=== PATIENT | female | born 1955 | race Caucasian/White ===

== ENCOUNTER 2018-04-01 18:45 | Observation (INO) | payer OTHER ==
[2018-04-01] MEDS ORDERED: NITROGLYCERIN 0.4 MG BTL SL ONE (19:20)
[2018-04-01] MEDS ORDERED: NS 500 ML IV ONE (19:23)
[2018-04-01] MEDS: NITROGLYCERIN 0.4 MG BTL SL PRN ×2 (19:25→19:46)
--- NOTE | 2018-04-01 19:32 | EDPHY ---
H & P Time Seen by Provider: 04/01/18 18:51 HPI/ROS: CHIEF COMPLAINT: Chest pain HISTORY OF PRESENT ILLNESS: Patient states she developed chest pain today around 4-430 this afternoon. She states she had been out and had dinner with a friend. When she arrived back at the house she felt a sharp, stabbing pain in the mid left chest that was about 7 to 8/10. She states that lasted only a second or 2. She sat down and states that the chest pain resumed although was not as sharp at that time. She felt that something was not right and took 4 baby aspirin. She continued to sit on her bed and described a 4/10 "heaviness" in her chest. The pain never went away. She describes the location of the pain as substernal to left-sided. There is radiation to the back and left jaw. She states she loosened her bra in hopes that that would help the discomfort. She did try omeprazole with no change. She states that she had some nausea but denies shortness of breath or diaphoresis. Eventually she decided to come to the emergency department for evaluation. She states that the pain currently as about 3 to 4/10. She denies any recent illnesses, no orthopnea, paroxysmal nocturnal dyspnea, dyspnea on exertion or decreased exercise tolerance. She does state however that 1-2 weeks ago she was a woken from sleep with a rapid heart rate. She states that it lasted several minutes but did not cause significant pain. She does have a family history of coronary artery disease her father had 2 triple bypass surgeries as well as stents and developed his heart problems in his 50s. She is a smoker. REVIEW OF SYSTEMS: Constitutional: No fever, no chills. Eyes: No discharge. ENT: No sore throat. Cardiovascular: Per HPI Respiratory: No cough, no shortness of breath. Gastrointestinal: No abdominal pain, no vomiting. Genitourinary: No dysuria. Musculoskeletal: Chest pain radiating to the back. Otherwise no musculoskeletal back pain. Skin: No rashes. Neurological: No headache. General Appearance: Alert, no distress. Eyes: Pupils equal and round no pallor or injection. ENT, Mouth: Mucous membranes moist. Respiratory: There are no retractions, lungs are clear to auscultation. Cardiovascular: Regular rate and rhythm. No murmurs rubs or gallops. Normal femoral pulses. Gastrointestinal: Abdomen is soft and nontender, no masses, bowel sounds normal. Neurological: Awake, alert, cranial nerves intact, no focal neurologic deficits. Skin: Warm and dry, no rashes. Musculoskeletal: Neck is supple nontender. Extremities are symmetrical, full range of motion, no edema. Psychiatric: Patient is oriented X 3, there is no agitation. Medical/surgical history: High cholesterol, "pre" type 2 diabetes, macular degeneration, hypothyroid. Surgeries include lumpectomies, foot surgery, C- section. Social history: Uses tobacco. Ashley Lira PCP. Smoking Status: Current every day smoker Constitutional: Initial Vital Signs Temperature (C) 36.5 C 04/01/18 18:56 Heart Rate 66 04/01/18 18:56 Respiratory Rate 12 04/01/18 18:56 Blood Pressure 172/86 H 04/01/18 18:56 O2 Sat (%) 96 04/01/18 18:56 O2 Delivery Mode Room Air Allergies/Adverse Reactions: erythromycin base [Erythromycin Base] Allergy (Verified 04/01/18 18:54) Iodinated Contrast- Oral and IV Dye Allergy (Verified 04/01/18 18:54) povidone-iodine [From Betadine] Allergy (Verified 04/01/18 18:54) soap [From Betadine] Allergy (Verified 04/01/18 18:54) Sulfa (Sulfonamide Antibiotics) Allergy (Verified 04/01/18 18:54) Home Medications: Medication Instructions Recorded Albuterol Hfa Anes Only [Proair 0 puffs IH 05/18/11 Hfa Icu] Aspirin [Aspirin 81mg] 81 mg PO DAILY 05/18/11 Fluticasone Nasal [Flonase Nasal sprays NASAL DAILY 05/18/11 [place]] Levothyroxine [Synthroid 50 mcg mcg PO DAILY06 05/18/11 (RX)] [place]-3 Fatty Acids [Fish Oil 1000 1,000 mg PO DAILY 05/18/11 mg (OTC)] Omeprazole [Prilosec 20 mg] mg PO DAILY 05/18/11 metFORMIN HCL [Glucophage 500 mg mg PO 05/18/11 (*)] oxyCODONE/APAP 5/325 [Percocet 5 mg PO Q4-6PRN PRN #15 tab NS 08/13/12 5/325] LORazepam [Ativan (*)] 04/01/18 SIMVASTATIN 04/01/18 Medical Decision Making - Diagnostics EKG Interpretation: EKG shows normal sinus rhythm with normal rate, borderline left axis deviation, normal intervals. Some subtle report will abnormalities V1 [address] 3[address] No acute [address] T-wave elevation to suggest infarct. Impression abnormal, nonspecific EKG. Imaging Results: Imaging Impressions Chest X-Ray 04/01/18 19:23 Impression: Suspect airways disease with no superimposed acute abnormality identified. ED Course/Re-evaluation: 7:40 p.m. Re-evaluation after initial nitro. Patient states some improvement, 1 to 2/10 pain currently. Discussed heart score, intermediate risk, recommendations for admission. 7:46 p.m. patient states "I need another nitro". 7:[address] Thomas, excepted for transfer to [facility]. 8:15 p.m. Re-evaluation finds patient meditating, no complaints. 8:43 p.m. ambulance arrival in the ED, patient stable on transfer. Differential Diagnosis: Differential diagnosis includes but is not limited to acute coronary syndrome, ST-elevation [place], pneumonia, vascular abnormality, thromboembolic disease. After evaluation concern for acute coronary syndrome. Patient with a heart score of 6 placing her in the intermediate range with a 12-16% risk of major adverse cardiac event in next 30 days. Patient with essentially normal x-ray and physical findings so low concern for thoracic aortic dissection or aneurysm. No risk factors, lower extremity edema, or shortness of breath to suggest pulmonary embolism and D-dimer was deferred. Plan is for transfer to [facility] for further evaluation. Discussed with hospitalistMAYDA complete, ambulance transfer arranged. - Data Points Laboratory Results: Laboratory Results 04/01/18 19:00 04/01/18 04/01/18 04/01/18 19:07 19:05 19:00 WBC 8.51 10^3/uL 10^3/uL (3.80-9.50) RBC 4.65 10^6/uL 10^6/uL (4.18-5.33) Hgb 14.0 g/dL g/dL (12.6-16.3) Hct 41.4 % % (38.0-47.0) MCV 89.0 fL fL (81.5-99.8) MCH 30.1 pg pg (27.9-34.1) MCHC 33.8 g/dL g/dL (32.4-36.7) RDW 13.9 % % (11.5-15.2) Plt Count 301 10^3/uL 10^3/uL (150-400) MPV 11.1 fL fL (8.7-11.7) Neut % (Auto) 58.9 % % (39.3-74.2) Lymph % (Auto) 26.4 % % (15.0-45.0) [place] % (Auto) 10.2 % % (4.5-13.0) Eos % (Auto) 3.9 % % (0.6-7.6) Baso % (Auto) 0.4 % % (0.3-1.7) Nucleat RBC Rel Count 0.0 % % (0.0-0.2) Absolute Neuts (auto) 5.01 10^3/uL 10^3/uL (1.70-6.50) Absolute Lymphs (auto) 2.25 10^3/uL 10^3/uL (1.00-3.00) Absolute Monos (auto) 0.87 10^3/uL H 10^3/uL (0.30-0.80) Absolute Eos (auto) 0.33 10^3/uL 10^3/uL (0.03-0.40) Absolute Basos (auto) 0.03 10^3/uL 10^3/uL (0.02-0.10) Absolute Nucleated RBC 0.00 10^3/uL 10^3/uL (0-0.01) Immature Gran % 0.2 % % (0.0-1.1) Immature Gran # 0.02 10^3/uL 10^3/uL (0.00-0.10) POC Sodium 142 mEq/L mEq/L (135-145) POC Potassium 4.3 mEq/L mEq/L (3.3-5.0) POC Chloride 105.0 mEq/L mEq/L (97-110) POC Total CO2 24 mEq/L mEq/L (22-31) POC BUN 13 mg/dL mg/dL (7-23) POC Creatinine 1.0 mg/dL mg/dL (0.6-1.0) POC Glucose 135 mg/dL H mg/dL (70-100) POC Calcium 9.5 mg/dL mg/dL (8.5-10.4) POC Total Bilirubin 0.9 mg/dL mg/dL (0.1-1.4) POC AST 29 IU/L IU/L (14-46) POC ALT 24 IU/L IU/L (9-52) POC Alk Phosphatase 84 IU/L IU/L (38-126) POC Troponin I 0.01 ng/mL ng/mL (0.00-0.08) POC Total Protein 7.3 g/dL g/dL (6.3-8.2) POC Albumin 3.8 g/dL g/dL (3.5-5.0) Medications Given: Nitroglycerin (Nitrostat) 0.4 mg SL Q5M PRN PRN Reason: Chest Pain Last Admin: 04/01/18 19:46 Dose: 0.4 mg Discontinued Medications Sodium Chloride (Ns) 500 mls @ 1,000 mls/hr IV EDNOW ONE PRN Reason: Protocol Stop: 04/01/18 19:52 Last Admin: 04/01/18 19:30 Dose: 500 mls Point of Care Test Results: CBC CBC Collection Date 04/01/18 CBC Collection Time 19:00 Chemistry 04/01/18 04/01/18 19:07 19:05 POC Sodium 142 mEq/L mEq/L (135-145) POC Potassium 4.3 mEq/L mEq/L (3.3-5.0) POC Chloride 105.0 mEq/L mEq/L (97-110) POC Total CO2 24 mEq/L mEq/L (22-31) POC BUN 13 mg/dL mg/dL (7-23) POC Creatinine 1.0 mg/dL mg/dL (0.6-1.0) POC Glucose 135 mg/dL H mg/dL (70-100) POC Calcium 9.5 mg/dL mg/dL (8.5-10.4) POC Total Bilirubin 0.9 mg/dL mg/dL (0.1-1.4) POC AST 29 IU/L IU/L (14-46) POC ALT 24 IU/L IU/L (9-52) POC Alk Phosphatase 84 IU/L IU/L (38-126) POC Troponin I 0.01 ng/mL ng/mL (0.00-0.08) POC Total Protein 7.3 g/dL g/dL (6.3-8.2) POC Albumin 3.8 g/dL g/dL (3.5-5.0) Departure - Departure
[2018-04-01 20:29] LABS: PLATELET COUNT 301 10^3/uL (150-400)
--- NOTE | 2018-04-01 20:51 | CPEKG ---
Test Reason : OPEN Blood Pressure : / mmHG Vent. Rate : 065 BPM Atrial Rate : 065 BPM P-R Int : 169 ms QRS Dur : 088 ms QT Int : 405 ms P-R-T Axes : 024 -24 040 degrees QTc Int : 422 ms Sinus rhythm Borderline left axis deviation Probable anteroseptal infarct, old Confirmed by Dedeee Ernst ([id number]) on 04/01/2018 8:51:32 PM Referred By: Deedee Ernst Confirmed By:Deedee Ernst
[2018-04-01] MEDS ORDERED: ACETAMINOPHEN 325 MG TAB PO PRN (21:33)
[2018-04-01] MEDS ORDERED: ONDANSETRON DISINTEGRATING 4 MG TAB PO PRN (21:33)
[2018-04-01] MEDS ORDERED: ONDANSETRON 4 MG/2 ML VIAL IVP PRN (21:33)
[2018-04-01] MEDS ORDERED: NITROGLYCERIN 0.4 MG BTL SL PRN (21:33)
--- NOTE | 2018-04-02 | PDGENHP ---
History and Physical - Chief Complaint Chest pain - History of Present Illness Source-patient provides history appears reliable. EMR was reviewed and case discussed with ED provider. HPI-this is a very pleasant 62-year-old female with past medical history significant for HLD, pre DM, hypothyroidism, GERD, anxiety with panic disorder presents emergency department at [facility] this evening with complaints of chest pain. Patient reports that she had been feeling well over the course of the weekend. She does admit that she does have increased stressors at work 0 ever she took the whole week and often was enjoying some time off with friends and family. This afternoon approximately 4-430 patient reports that she was eating dinner with a friend when she developed sharp stabbing type pain in the left chest that was quite unusual for her. Pain was 7 8/10. The pain resolved very quickly however and so patient returned home and was feeling well however shortly thereafter patient again developed chest pain this time with a component of heaviness and squeezing for a 10 pain. Patient thought that perhaps she was having some reflux issues so she took a dose of omeprazole without any improvement in her pain. She did note a little bit of nausea but nothing that was long lasting. She denies any associated shortness of breath or diaphoresis. Patient took of 481 mg of aspirin at home when she began to feel like she was develops a ping pain radiating to her shoulder blades as well as pain into her left neck. When the pain did not change or improve she opted to be evaluated. Patient does report a history of a stress test 15 years ago that was within normal limits. She states that with her annual checkup she states that her lipid panel and sugars have been well controlled. She denies any recent history of lower extremity edema, orthopnea or PND. She does note that she has been experiencing some intermittent palpitations and tachycardia over the past 2 weeks. She does endorse some presyncopal type episodes for which she has had to lay on the floor until it resolved. She has not seen her PCP regarding any of these events. Patient also notes that her father had a significant cardiac history with need for CABG x2 as well as subsequent stenting starting age 50s. Shortly upon arrival patient was reporting some 3/10 chest discomfort. She received a dose of nitroglycerin her pain resolved. History Information - Allergies/Home Medication List Allergies/Adverse Reactions: erythromycin base [Erythromycin Base] Allergy (Verified 04/01/18 18:54) Iodinated Contrast- Oral and IV Dye Allergy (Verified 04/01/18 18:54) povidone-iodine [From Betadine] Allergy (Verified 04/01/18 18:54) soap [From Betadine] Allergy (Verified 04/01/18 18:54) Sulfa (Sulfonamide Antibiotics) Allergy (Verified 04/01/18 18:54) Home Medications: Aspirin [Aspirin 81mg] 81 mg PO DAILY 05/18/11 [Last Taken 04/01/18 324 MG] Omeprazole [Prilosec 20 mg] 20 mg PO DAILY 05/18/11 [Last Taken 04/01/18] C/E/Zn/Cu/OM3/DHA/EPA/LUT/ZEAX [Preservision Areds 2 Softgel] 2 each PO HS 04/01 [Last Taken 03/31/18] Dicyclomine [Bentyl 20 MG (*)] 20 mg PO QID PRN 04/01/18 [Last Taken Unknown] Herbals/Supplements -Info Only 1 ea PO DAILY 04/01/18 [Last Taken Unknown] LORazepam [Ativan (*)] 0.5 mg PO DAILY PRN 04/01/18 [Last Taken Unknown] Levothyroxine [Synthroid 100 mcg (*)] 100 mcg PO DAILY 04/01/18 [Last Taken ] Metformin HCl [Fortamet] 1,000 mg PO HS 04/01/18 [Last Taken 03/31/18] Omeprazole 20 mg PO DAILY PRN 04/01/18 [Last Taken Unknown] Simvastatin [Zocor] 40 mg PO HS 04/01/18 [Last Taken 03/31/18] Vitamin B Complex [Vitamin B Complex (OTC)] 1 each PO DAILY 04/01/18 [Last Taken 03/31/18] I have personally reviewed and updated: family history, medical history, social history, surgical history - Past Medical History Additional medical history: GERD, HLD, pre DM 2, hypothyroidism, macular degeneration, anxiety with history of panic attacks, IBS - Surgical History Additional surgical history: Lumpectomy x2, foot surgery, - Family History Additional family history: Father-age 50 with history of multiple CABGs and stents starting in his latter 50s. Parkinson's and vascular dementia. Mother- astrocytoma - Social History Smoking Status: Current every day smoker Tobacco Use: Cigarettes (Five cigarettes per day patient has been cutting back.) Alcohol Use: Occasionally (Patient reports drinking 1 glass a wine every 3 weeks or less.) Drug Use: Marijuana (Patient reports using 1 times weekly or less.) Additional social history: Patient lives with a roommate. Cor status-full. Review of Systems Review of Systems: ROS: 10pt was reviewed & negative except for what was stated in HPI & below Constitutional: Reports: no symptoms EENMT: Reports: no symptoms Cardiac: Reports: chest pain, lightheadedness, palpitations, syncope ( Presyncopal episodes x2 over the past 2 weeks.). Denies: edema Respiratory: Reports: no symptoms. Denies: shortness of breath Gastrointestinal: Reports: nausea. Denies: vomitting, diarrhea Genitourinary: Reports: no symptoms Muscolosketal: Reports: no symptoms Skin: Reports: no symptoms Neurological: Reports: anxiety. Denies: depressed, tingling, weakness Hematologic/Lymphatic: Reports: no symptoms Physical Exam Physical Exam: Selected Entries 04/01/18 18:56 Blood Pressure Automatic Method Heart Rate 66 Respiratory 12 Rate O2 Sat (%) 96 Temperature (C) 36.5 C Blood Pressure 172/86 H Mean Arterial 114 H Pressure (MAP) O2 Delivery Room Air Mode Temperature Oral Source Temp Pulse Resp BP Pulse Ox 36.6 C 53 L 14 109/61 95 04/01/18 20:47 04/01/18 20:47 04/01/18 20:47 04/01/18 20:47 04/01/18 20:47 Constitutional: no apparent distress, appears nourished, not in pain Eyes: PERRL (Slightly decreased reactivity to light bilaterally but symmetric.) , anicteric sclera, EOMI, No scleral injection Ears, Nose, Mouth, Throat: moist mucous membranes, No poor dentition Cardiovascular: regular rate and rhythym, no murmur, rub, or gallop, pulses symmetric bilaterally, No edema Peripheral Pulses: 2+: dorsalis-pedis (R), dorsalis-pedis (L) Respiratory: no respiratory distress, no rales or rhonchi, clear to auscultation , No respiratory distress Gastrointestinal: normoactive bowel sounds, soft, non-tender abdomen, no palpable masses, other (Obese abdomen.), No distension Genitourinary: no bladder tenderness, No patel in urethra Skin: warm, normal color, no rashes or abrasions Musculoskeletal: full muscle strength, other (Grossly normal exam.) Neurologic: AAOx3, sensation intact bilaterally, other (Grossly nonfocal exam.) , No facial droop Psychiatric: interacting appropriately, not encephalopathic, thought process linear, anxious, No depressed, No agitated Lab Data & Imaging Review 04/01/18 19:00 WBC 8.51 10^3/uL (3.80-9.50) 04/01/18 19: RBC 4.65 10^6/uL (4.18-5.33) 04/01/18:00 Hgb 14.0 g/dL (12.6-16.3) 04/01/18 19:00 Hct 41.4 % (38.0-47.0) 04/01/18 19:00 MCV 89.0 fL (81.5-99.8) 04/01/18: MCH 30.1 pg (27.9-34.1) 04/01/18 19: MCHC 33.8 g/dL (32.4-36.7) 04/01/18 19: RDW 13.9 % (11.5-15.2) 04/01/18 19: Plt Count 301 10^3/uL (150-400) 04/01/18 19:00 MPV 11.1 fL (8.7-11.7) 04/01/18: Neut % (Auto) 58.9 % (39.3-74.2) 04/01/18 19: Lymph % (Auto) 26.4 % (15.0-45.0) 04/01/18 19:00 [place] % (Auto) 10.2 % (4.5-13.0) 04/01/18 19:00 Eos % (Auto) 3.9 % (0.6-7.6) 04/01/18 19:00 Baso % (Auto) 0.4 % (0.3-1.7) 04/01/18 19:00 Nucleat RBC Rel Count 0.0 % (0.0-0.2) 04/01/18 19:00 Absolute Neuts (auto) 5.01 10^3/uL (1.70-6.50) 04/01/18 19:00 Absolute Lymphs (auto) 2.25 10^3/uL (1.00-3.00) 04/01/18 19:00 Absolute Monos (auto) 0.87 10^3/uL (0.30-0.80) H 04/01/18 19:00 Absolute Eos (auto) 0.33 10^3/uL (0.03-0.40) 04/01/18 19:00 Absolute Basos (auto) 0.03 10^3/uL (0.02-0.10) 04/01/18 19:00 Absolute Nucleated RBC 0.00 10^3/uL (0-0.01) 04/01/18 19:00 Immature Gran % 0.2 % (0.0-1.1) 04/01/18 19:00 Immature Gran # 0.02 10^3/uL (0.00-0.10) 04/01/18 19:00 POC Sodium 142 mEq/L (135-145) 04/01/18 19:07 POC Potassium 4.3 mEq/L (3.3-5.0) 04/01/18 19:07 POC Chloride 105.0 mEq/L (97-110) 04/01/18 19:07 POC Total CO2 24 mEq/L (22-31) 04/01/18 19:07 POC BUN 13 mg/dL (7-23) 04/01/18 19:07 POC Creatinine 1.0 mg/dL (0.6-1.0) 04/01/18 19:07 POC Glucose 135 mg/dL (70-100) H 04/01/18 19:07 POC Calcium 9.5 mg/dL (8.5-10.4) 04/01/18 19:07 POC Total Bilirubin 0.9 mg/dL (0.1-1.4) 04/01/18 19:07 POC AST 29 IU/L (14-46) 04/01/18 19:07 POC ALT 24 IU/L (9-52) 04/01/18 19:07 POC Alk Phosphatase 84 IU/L (38-126) 04/01/18 19:07 POC Troponin I 0.01 ng/mL (0.00-0.08) 04/01/18 19:05 POC Total Protein 7.3 g/dL (6.3-8.2) 04/01/18 19:07 POC Albumin 3.8 g/dL (3.5-5.0) 04/01/18 19:07 Imaging Review: Portable AP Upright Chest at 1931 hours Clinical Indications: Chest pain in a 62-year-old female Findings: No focal pulmonary consolidation is identified. Mild peribronchial thickening is noted.. Heart size and pulmonary vessels appear normal. No evidence of pleural effusion. Spinal degenerative changes are seen. Impression: Suspect airways disease with no superimposed acute abnormality identified. Dictated By: Leandro Henning MD Visualized and Interpreted Chest x-ray results: Yes Visualized and Interpreted EKG results: Yes EKG additional interpertation: Level NSR 60s. LAD. Q-wave in the septal leads. T-wave flattening lead III. No acute ST changes. QTC 422. Assessment & Plan Assessment: 62-year-old female with history of GERD, HLD, pre DM 2, hypothyroidism, anxiety with panic attacks who presents to the emergency department today with complaints of new onset of left-sided chest pain and pressure. # chest pain - ddx ACS vs. anxiety vs. reflux or MSK. no acute changes on ekg. q waves noted in septal leads. last stress 1 years ago. pt HEART score 4. discussed plan for observation with serial ekgs and troponins. patient reports she would be able to participate with treadmill stress but she has history of bradycardia and notes hard to get her HR elevated appropriately. nitro prn. # palpitations - NSR on ekg and current tele. will monitor overnight and advised patient to notify RN if any symptoms. check orthostatics. chronic medical issues #HLD - check lipid panel #pre-DM II - check a1c. resume metformin. #gerd - continue ppi. #anxiety/panic disorder - ativan available prn. #IBS - currently controlled. FEN - regular diet then npo. electrolytes adequate. PPX - SCDs. lovenox if patient should stay additional day. COR - FULL. pt does not want life support > 7 days. Dispo - PAtient admitted to observation status on PCU floor for close cardiac monitoring and evaluation as above.
[2018-04-02] MEDS ORDERED: LORazepam 0.5 MG TAB PO PRN (00:22)
[2018-04-02] MEDS ORDERED: MELATONIN 3 MG TAB PO PRN (00:23)
[2018-04-02] MEDS ORDERED: diphenhydrAMINE 25 MG CAP PO PRN (00:23)
[2018-04-02] MEDS ORDERED: DICYCLOMINE 20 MG TAB PO PRN (00:25)
[2018-04-02] MEDS ORDERED: ASPIRIN 325 MG TAB PO SCH ×2 (09:00→21:00)
[2018-04-02] MEDS ORDERED: PANTOPRAZOLE SODIUM 40 MG TAB PO SCH (09:00)
[2018-04-02] MEDS ORDERED: LEVOTHYROXINE 100 MCG TAB PO SCH (09:00)
[2018-04-02 11:48] VITALS: BP 138/75
--- NOTE | 2018-04-02 12:19 | ASMTCMCOM ---
CM Note CM Note Notes: 04/02/2018 Case Management Note Discussed pt during rounds this morning. Pt admitted for chest pain. Stress test is planned. There are no case management d/c needs identified d/t pt age, marital status, employment status and independence with ADL's prior to admission. There are no therapy evals ordered at this time. Case Management d/c poc: independent with follow up as directed. Case Management available if needs change. Date Signed: 04/02/2018 12:19 PM Electronically Signed By:Ashley Askew RN
--- NOTE | 2018-04-02 14:03 | CPR ---
DATE OF PROCEDURE: 04/02/2018 PROCEDURE: Exercise treadmill test. INDICATION: The patient is a 62-year-old female who presented to the hospital complaining of left-si ded sharp chest pain. She walks regularly and denies any exertional chest discomfort or dyspnea on e xertion. Her risk factors for coronary artery disease, include hyperlipidemia, prediabetes, and ongo ing tobacco use. She also has a family history of coronary disease with her father requiring bypass surgery in his late 50s. DESCRIPTION OF PROCEDURE: Consent was obtained and the patient was placed on continuous telemetry. Her resting EKG review reveals normal sinus rhythm. She walked on the treadmill for 6 minutes and 49 seconds and denied any symptoms associated with angina. She had nonspecific ST, T-wave changes with exertion. There were no diagnostic changes. Her blood pressure at rest was 138/80, and peaked at 1 70/80. Her blood pressure and heart rate returned to baseline within 5 minutes of the recovery phase . PLAN: Low risk exercise treadmill test. /[id number]/MODL
--- NOTE | 2018-04-02 14:42 | PDDCSUM ---
Discharge Summary Discharge Summary: Date of Admission: 04/01/2018 Date of Discharge: 04/02/2018 Studies: 1. Treadmill stress test Discharge Diagnoses: 1. Non-cardiac chest pain 2. Hyperlipidemia (LDL 106) 3. Pre-diabetes (A1c 6.2%) 4. GERD 5. Anxiety/panic disorder 6. IBS Brief Hospital Course: 62yo F with h/o HLD, pre-diabetes, anxiety with panic attacks presented after several episodes of left-sided chest pain and pressure. Serial troponin and ECG were negative for acute ischemia. She underwent an exercise treadmill stress test that was low risk for coronary artery disease. Her symptoms did not recur. She is already on an aspirin and statin for primary prevention of cardiovascular disease. Overall, I suspect her symptoms were anxiety vs MSK related. Medications: Please refer to EMR, no changes were made. Follow Up Plan: 1. She has appointment with PCP later this week Physical Exam: Vitals reviewed, normotensive. Alert and oriented, rrr without m/ r/g, lungs clear, abdomen soft and nontender, no leg edema, no rashes.
--- NOTE | 2018-04-02 14:53 | ASDISCHSUM ---
Discharge Information Plan Status:Home with No Needs Medically Cleared to Leave:04/01/2018 Discharge Date:04/01/2018 CM D/C Disposition:Home, Routine, Self-Care ADT D/C Disposition:Home, Routine, Self-Care Projected Discharge Date:04/01/2018 Transportation at D/C:Family Discharge Delay Reason: Follow-Up Date:04/01/2018 Discharge Slot: Final Diagnosis: Placement Information Patient Contact Information Contact Name:NESTOR Relationship:Bull Address:[address] [place] Phone: City:[place] Alternate Phone: State/Zip Code:[place] [address] Email: Financial Information Financial Class:BCOP Primary Plan Desc:[facility] Primary Plan Number:[id number] Secondary Plan Desc: Secondary Plan Number: Assessment Information LACE LACE Length of stay for Answers: Less than 1 day current admission Acuity / Level of Answers: No Care: Did the patient have an inpatient admission? Comorbidities - select Answers: Diabetes (uncontrolled or all that apply controlled) Other Notes: GERD,HLD,hypothyroidism , m acular degeneration, IB S # of Emergency department Answers: 1-2 visits in the last 6 months Social determinants Answers: Mental health diagnosis (anxiety, depression, pers onality disorders, etc.) Score: 6 Date Signed: 04/02/2018 02:47 PM Electronically Signed By:Ashley Askew RN [facility] CM Progress Note CM Note CM Note Notes: 04/02/2018 Case Management Note Discussed pt during rounds this morning. Pt admitted for chest pain. Stress test is planned. There are no case management d/c needs identified d/t pt age, marital status, employment status and independence with ADL's prior to admission. There are no therapy evals ordered at this time. Case Management d/c poc: independent with follow up as directed. Case Management available if needs change. Date Signed: 04/02/2018 12:19 PM Electronically Signed By:Ashley Askew RN Intervention Information
--- NOTE | 2018-04-02 15:56 | CPEKG ---
Test Reason : OPEN Blood Pressure : / mmHG Vent. Rate : 060 BPM Atrial Rate : 060 BPM P-R Int : 177 ms QRS Dur : 091 ms QT Int : 434 ms P-R-T Axes : 018 -25 035 degrees QTc Int : 434 ms Sinus rhythm Borderline left axis deviation Low voltage, precordial leads Confirmed by Medhat Fletcher ([id number] on 04/02/2018 3:55:37 PM Referred By: Shahrzad Thomas Confirmed By:Medhat Fletcher
[2018-04-02] MEDS ORDERED: metFORMIN HCL 500 MG TAB PO SCH (21:00)
[2018-04-02] MEDS ORDERED: ATORVASTATIN CALCIUM 20 MG TAB PO SCH (21:00)
[2018-04-03] MEDS ORDERED: LEVOTHYROXINE 100 MCG TAB PO SCH (06:00)
== END 2018-04-02 15:03 | disposition home or self-care (01) ==
LOC: CED 18:45 → CEDHOLD 19:51 → F2W 21:23
PROVIDERS: ADMIT Internal Medicine; ATTEND Internal Medicine
DX: R07.9 Chest pain, unspecified (principal); R00.2 Palpitations; E86.9 Volume depletion, unspecified; F17.210 Nicotine dependence, cigarettes, uncomplicated; E78.5 Hyperlipidemia, unspecified; R73.03 Prediabetes; K21.9 Gastro-esophageal reflux disease without esophagitis; F41.9 Anxiety disorder, unspecified; K58.9 Irritable bowel syndrome, unspecified; E03.9 Hypothyroidism, unspecified; Z82.49 Family history of ischemic heart disease and other diseases of the circulatory system; Z88.2 Allergy status to sulfonamides
CPT/HCPCS: 71045; 93005; 96360; 99285; G0378; 80053-ER; 84484-ER